=== PATIENT | female | born 1935 | race Caucasian/White ===

== ENCOUNTER 2016-06-15 07:26 | Emergency (ER) | payer MEDICARE ==
--- NOTE | 2016-06-15 07:24 | ED.REPORT ---
HPI-Trauma Minor / Fall Date of Service Jun 15, 2016 ED Provider: Teagan Champion MD 80 year old female with a history of vertigo, and right hip fracture presents to the ER via EMS complaining of left buttock pain status post mechanical ground level fall two days ago. Since the fall she has been unable to ambulate, and she reports limited range of motion of her left hip, radiation of pain down her left leg, and exacerbation of baseline urinary incontinence since the fall. Patient denies head/neck trauma, LOC, numbness/tingling of the left lower extremity, and any other injuries secondary to the fall. She is typically ambulatory with use of a walker. Nursing Notes Stated Complaint: GLF,BUTTOCK AND GROIN PAIN Nursing Notes Reviewed: Yes Allergies: Coded Allergies: No Known Allergies (Verified , 06/05/03) Uncoded Allergies: No Known Allergies (Allergy, Unknown, 08/16/04) Scheduled Aspirin (Aspirin) 325 Mg Tablet 325 MG PO BID Please start on May 01 2015 Cholecalciferol (Vitamin D3) (Vitamin D) 1,000 Unit Tablet 1,000 UNIT PO DAILY Enoxaparin Sodium (Enoxaparin Sodium) 40 Mg/0.4 Ml Syringe 40 MG SUBQ DAILY Omeprazole (Prilosec) 20 Mg Capcr 10 MG PO DAILY Scheduled PRN ([Hydrocodone/Acetaminophen]) 1 TABLET TABLET 1-2 TABLET PO Q4H PRN PRN For Moderate Pain Docusate Sodium (Colace) 100 Mg Capsule 100 MG PO BID PRN PRN For Constipation Polyethylene Glycol 3350 (Miralax) 17 Gm Powd.pack 17 GM PO DAILY PRN PRN For Constipation Sennosides (Senna) 8.6 Mg Tablet 17.2 MG PO BID PRN PRN For Constipation Sertraline HCl (Zoloft) 100 Mg Tablet 100 MG PO DAILY PRN PRN For Anxiety General Time Seen by MD: 07:23 Chief Complaint Fall, Extremity pain (Left Buttock) Hx Obtained From: Patient Arrived By: Ambulance Onset Occurred: 2 days ago Symptom Duration: Since onset Caused by: Accidental, Fall on ground Context: Occurred at: Home injury Location: Hip left (Buttock) Quality: Painful Severity: Current: Moderate Severity: Maximum: Moderate Associated with: Denies: Loss of consciousness, Numb extremities Similar Sx Previous: No Past Medical History Past Medical History Urinary stress incontinence Right hp fracture Past Surgical History Colonoscopy Family History noncontributory Smoking History Former Smoker Social History Drug Use: Denies drug use Other Social History: Good social support, Local resident Ambulatory Status Walker Review of Systems Musculoskeletal: Reports: Extremity pain (Left Leg), Joint pain (Left Hip/ Buttock), Denies: Back pain, Lumbar pain, Neck pain, Thoracic pain Neurologic: Reports: Bladder dysfunction, Denies: Focal weakness, Headache, Numbness, Syncope Complete sys rev & neg: except as marked. Physical Exam Initial Vital Signs Vital Signs (First) Date Time Temp Pulse Resp B/P Pulse Ox O2 Delivery O2 Flow Rate FiO2 06/15/16 07:36 36.7 85 16 162/86 95 Room Air Initial VS: Reviewed Head / Eyes: Atraumatic, Normocephalic Respiratory: Breath sounds normal, Clear to auscultation, No respiratory distress Cardiovascular: Regular rate & rhythm, Heart sounds normal, Intact distal pulses Abdomen / GI: Soft, Non-tender, No guarding, No rebound, No distention Skin: Warm, Dry, No cyanosis Neurologic: Alert, Oriented, Nonfocal General/Constitutional: Awake, Alert Neck: Atraumatic, Supple, Full range of motion, No swelling, Non-tender, No midline vertebral tend RIGHT HIP: Tender in the center of her right buttock. Pain with any hip movement. Difficulty lifting hip from the bed. Interpretation & Diagnostics Lab Results Interpretation Test 06/15/16 07:20 06/15/16 08:58 Hold Purple Top Tube Received (Received) Hold Blue Top Tube Received (Received) Hold [place] Top Tube Received (Received) Urine Color Straw (YELLOW) Urine Appearance Clear (CLEAR,HAZY) Urine pH 7.5 (5.0-8.0) Urine Specific [place] 1.010 (1.003-1.035) Urine Protein Negativemg/dL (NEG,TRACE) Urine Glucose (UA) Negativemg/dL (NEGATIVE) Urine Ketones Negativemg/dL (NEGATIVE) Urine Occult Blood Small (NEGATIVE) Urine Nitrite Negative (NEGATIVE) Urine Bilirubin Negative (NEGATIVE) Urine Urobilinogen Normalmg/dL (NORMAL) Urine Leukocyte Esterase Negative (NEGATIVE) Urine RBC 3-10/hpf (0-2) Urine WBC 0-5/hpf (0-5) Urine Epithelial Cells Occasional/hpf (NONE-MOD) Urine Crystals None seen (NONE SEEN) Urine Bacteria None/hpf (NONE-FEW) Urine Hyaline Casts None/lpf (NONE) Urine Granular Casts None seen (NONE SEEN) Urine Waxy Casts None seen (NONE SEEN) Urine Red Blood Cell Casts None seen (NONE SEEN) Urine White Blood Cell Casts None seen (NONE SEEN) Urine Mucus None seen (None Seen) Urine Trichomonas None seen (NONE SEEN) Urine Yeast None (NONE SEEN) Urinalysis Comment None Urine Culture Reflexed Not indicated X-Ray Interpretation Xray Interpretation: IMPRESSION: Multilevel degenerative change. Dictated by: Joce ALARCON Interpreted: Mitchel Lopez MD on 06/15/2016 at 9:14 Transcribed by: VLAD on 06/15/2016 at 9:15 Study Performed: LUMBAR SPINE Interpretation / Wet Read by: Interpret - Radiologist Xray Interpretation: IMPRESSION: Intact left hip arthroplasty and mild right hip joint degeneration redemonstrated. Dictated by: Joce ALARCON Interpreted: Mitchel Lopez MD on 06/15/2016 at 9:16 Transcribed by: VLAD on 06/15/2016 at 9:18 X-Ray Ordered: Pelvis, Hip left Interpretation / Wet Read by: Interpret - Radiologist CT Abd / Pelvis Interpretation IMPRESSION: 1. Minimally displaced anterior right inferior pubic ramus fracture. 2. Nondisplaced left sacral fracture. Dictated by: Mary Gonzalez M.D. on 06/15/2016 at 9:58 Approved by: Mary Gonzalez M.D. on 06/15/2016 at 10:08 Study type: Abdom CT oral contrast Interpretation / Wet Read by: Interpret - Radiologist Re-Eval/Medical Decision Source of Hx: Old records Re-Evaluation/Progress #1: Time of Eval: 09:38 Re-Evaluation/Progress Note: Patient's pain has improved significantly with pain medications. Discussed x-ray results and need for CT. Re-Evaluation/Progress #2: Time of Eval: 10:29 Re-Evaluation/Progress Note: Discussed CT results and plan to discharge. Patient is amenable to the plan. Return precautions given. All other questions addressed. Counseled Regarding: Diagnosis, Lab results, Need for follow-up, When/why to return to ED Discharge & Departure Impression: Primary Impression: Pelvis fracture Additional Impression: Sacral fracture, closed Disposition: Home Discharge Condition All VS Reviewed: Yes Condition: Stable Additional Instructions: You did break your pelvis. Fortunately, there is no need for surgery. You will be the most sore about 2 days after the injury (today). You had good pain relief with one Aleve. Please continue this am and pm as need.. Add Tylenol in the middle of the day if needed for additional pain. Use a walker for ambulation. You do need to make sure you are up and moving. Between you, your and your daughter, you all believe you will do well at home and will be able to get up and around enough to get the bathroom for the next days. Return to the ER if you develop worsening pain or other concerning symptoms. Thank you for coming in today. I'm sorry you are broken. I hope you heal up quickly. Please be very careful with preventing falls. Referrals: Nedra Barksdale MD (PCP) Scribe Attestation Portions of this note were transcribed by Gary Sims. I, Dr. Champion, personally performed the history, physical exam and medical decision-making; I reviewed and confirmed the accuracy of the information in the transcribed note. Signed by: Eulalia De Los Santos, 06/15/2016 at 10:54 copies to: Nedra Barksdale MD, Shawna L MD Jun 15, 2016 07:24 GARY SIMS Jun 15, 2016 07:33
[~2016-06-15 07:26] MED LIST: ASPI325T32 PO; CHOL100043 PO; DOCU-41 PO; ENOX40DI8 SUBQ; Hydrocodone/Acetaminophen PO; OMPR20CCR PO; POLY17PO6 PO; SENN-133 PO; SERT100T PO
[2016-06-15 07:36] VITALS: BP 162/86; PULSE 85; RESP 16; O2SAT 95
--- NOTE | 2016-06-15 09:16 | DRSVH ---
PROCEDURE: X-RAY LUMBAR SPINE, 2 OR 3 VIEW INDICATIONS: fall TECHNIQUE: 3 views of the lumbar spine were acquired. COMPARISON: None. FINDINGS: Bones: 5 [id number] vertebrae are present. Mild rightward curvature. Grade 1 retrolisthesis L2 -L3 and L5-S1. Moderate multilevel disc degeneration and lower lumbar spine facet joint arthropathy with also mild neural foraminal narrowing. No vertebral body compression fractures. No suspicious b rylee lesions. Left hip arthroplasty incompletely visualized. Cholecystectomy clips. Soft tissues: Overlying bowel gas pattern is normal. No suspicious soft tissue calcifications. IMPRESSION: Multilevel degenerative change. Dictated by: Joce Sapp [facility] Interpreted: Mitchel Lopez MD on 06/15/2016 at 9:14 Transcribed by: VLAD on 06/15/2016 at 9:15 Approved by: Mitchel Lopez M.D. on 06/15/2016 at 10:52
--- NOTE | 2016-06-15 09:18 | DRSVH ---
PROCEDURE: X-RAY PELVIS W/LAT HIP (LT) ([id number]) INDICATIONS: fall TECHNIQUE: AP pelvis and lateral view of the left hip acquired. COMPARISON: [facility], , XR PELVIS W LATERAL HIP LT, 05/28/2015, 8:36. FINDINGS: Bones: Left hip arthroplasty is intact. No fracture or dislocation. Soft tissues: The visualized bowel gas pattern phleboliths are scattered throughout the pelvis. is n ormal. No suspicious soft tissue calcifications. Mild joint narrowing with periarticular osteophyte formation of the right hip joint. IMPRESSION: Intact left hip arthroplasty and mild right hip joint degeneration redemonstrated. Dictated by: Joce LEON Interpreted: Mitchel Lopez MD on 06/15/2016 at 9:16 Transcribed by: VLAD on 06/15/2016 at 9:18 Approved by: Mitchel Lopez M.D. on 06/15/2016 at 10:52
[2016-06-15 09:20] LABS: APPEARANCE,URINE CLEAR (CLEAR,HAZY); COLOR,URINE STRAW (YELLOW); OCCULT BLOOD,URINE SMALL (NEGATIVE); PH,URINE 7.5 (5.0-8.0); UROBILINOGEN,URINE NORMAL (NORMAL)
[2016-06-15 09:28] VITALS: BP 130/69; PULSE 82; RESP 12; O2SAT 97
--- NOTE | 2016-06-15 10:10 | DRSVH ---
PROCEDURE: CT PELVIS WITHOUT CONTRAST ([id number]) INDICATIONS: RIGHT hip pain. fall TECHNIQUE: After the administration of oral contrast, 5 mm thick sections acquired from the iliac crests to the symphysis. 5 mm coronal and sagittal reformats were then performed. For radiation dose reduction, t he following was used: automated exposure control, adjustment of mA and/or kV according to patient s ize. COMPARISON: [facility], CR, XR PELVIS W LATERAL HIP LT, 06/15/2016, 8:03. FINDINGS: Image quality: Excellent. Peritoneum and bowel: Bowel loops demonstrate normal wall thickness and caliber. No free fluid or a ir. Genitourinary: Bladder wall thickness is normal. Nodes and vessels: No iliac, pelvic, or inguinal adenopathy by size criteria. Iliac vessels demonst rate normal size. Bones: No suspicious bony lesions. There is a minimally displaced anterior right inferior pubic tish us fracture. Additionally, there is a nondisplaced left sacral fracture. Left hip arthroplasty is p resent. Miscellaneous: No inguinal hernias. IMPRESSION: 1. Minimally displaced anterior right inferior pubic ramus fracture. 2. Nondisplaced left sacral fracture. Dictated by: Mary Gonzalez M.D. on 06/15/2016 at 9:58 Approved by: Mary Gonzalez M.D. on 06/15/2016 at 10:08
[2016-06-15 10:58] VITALS: BP 135/52; PULSE 98; RESP 14; O2SAT 97
[2016-06-15 11:19] VITALS: BP 135/52; PULSE 98; RESP 14; O2SAT 97
== END 2016-06-15 11:20 | disposition home or self-care (01) ==
LOC: SED 07:26
DX: S32.501A Unspecified fracture of right pubis, initial encounter for closed fracture (principal); S32.10XA Unspecified fracture of sacrum, initial encounter for closed fracture; W18.30XA Fall on same level, unspecified, initial encounter; Y92.009 Unspecified place in unspecified non-institutional (private) residence as the place of occurrence of the external cause; Y93.89 Activity, other specified; Y99.8 Other external cause status; Z86.69 Personal history of other diseases of the nervous system and sense organs; Z87.828 Personal history of other (healed) physical injury and trauma; Z96.642 Presence of left artificial hip joint; Z87.891 Personal history of nicotine dependence; Z79.82 Long term (current) use of aspirin

== ENCOUNTER 2016-06-26 09:51 | Inpatient (IN) | payer MEDICARE ==
[~2016-06-26] VITALS: Ht 154.9 cm; Wt 48.9 kg
[2016-06-26 10:04] VITALS: BP 110/43; PULSE 67; RESP 15; O2SAT 95
--- NOTE | 2016-06-26 10:11 | ED.REPORT ---
HPI-General Illness Date of Service June 26, 2016 ED Provider: Teagan Champion MD Dania Masterson is an 80 year old female with a history of vertigo, right hip fracture presents and pelvis fracture secondary to ground level fall on 06/15/13 presents presents [facility] ER via EMS complaining of worsening left buttock pain. Since the fall she has been unable to ambulate, and she reports limited range of motion of her left hip, radiation of pain down her left leg. She has been on Hydrocodone for pain at home. She states it provides relief as long as she is in bed, but if she tries to ambulate the pain is severe so she prefers to stay in bed most of the time. She is typically ambulatory with use of a walker. Patient also states she has been constipated and had not have a bowel movement for 5 days. She has not been taking any stool softeners along with pain medication. Patient denies chills, fever, nausea, vomiting, dysuria. Nursing Notes Stated Complaint: PELVIC PAIN Chief Complaint: General Complaint Allergies: Coded Allergies: No Known Allergies (Verified , 06/05/03) Uncoded Allergies: No Known Allergies (Allergy, Unknown, 08/16/04) Scheduled Aspirin (Aspirin) 81 Mg Tablet 81 MG PO DAILY Levothyroxine (Levothyroxine) 50 Mcg Tablet 50 MCG PO DAILY Omeprazole Magnesium (Prilosec Otc) 20 Mg Tablet.dr 5 MG PO DAILY Sertraline HCl (Sertraline) 100 Mg Tablet 100 MG PO DAILY Scheduled PRN Alprazolam (Alprazolam) 0.5 Mg Tablet 0.5 MG PO BID PRN PRN For Anxiety or Agitation General Time Seen by MD: 10:10 Chief Complaint Weakness (and pain) Hx Obtained From: Patient, Spouse Arrived By: Ambulance Onset Occurred: More than a week ago... Symptom Duration: Since onset Past Medical History Past Medical History Urinary stress incontinence Right hp fracture Left hip arthroplasty Past Surgical History Colonoscopy Family History noncontributory Smoking History Former Smoker Social History Drug Use: Denies drug use Other Social History: Good social support, , Local resident Ambulatory Status Walker Review of Systems A comprehensive review of systems has been conducted with the patient and was found to be negative except what is mentioned in the history of present illness. Physical Exam Vital Signs Vital Signs Date Time Temp Pulse Resp B/P Pulse Ox O2 Delivery O2 Flow Rate FiO2 5/5/17 14:26 36.9 72 17 135/61 97 Room Air 06/26/16 10:04 36.7 67 15 110/43 95 Room Air General/Constitutional: Awake, Alert, No acute distress Appearance / Presentation: Positive: Frail Head / Eyes: Atraumatic, Normocephalic, PERRL, EOMI, No nystagmus ENT: Mucous membranes moist Neck: Supple, Full range of motion Respiratory / Chest: Breath sounds NL, No respiratory distress, No rales, No rhonchi, No wheezing Cardiovascular: Heart rate NL, Regular rhythm, No murmurs Abdomen: Soft, BS normoactive, No distention, No palpable mass Tenderness/Guarding/Rebound: Positive: Tender RLQ... (Mild) Lower Extremity / Pelvis / MS: No swelling, No erythema, Neurologic intact, No edema Pelvis: Positive: Tender posterior (Left side) Ankle / Foot: Inspection NL, Full range of motion, Neurologic intact Skin: No rash Interpretation & Diagnostics Lab Results Interpretation Result Diagram: 06/27/1644406/27/16444 Re-Eval/Medical Decision Med Decision/Clinical Course 80 year old female with left sacral pain secondary to pelvis fracture and constipation. We have administered Hydromorphone IV for pain relief as well as Percocet PO. We had a physical evaluation ordered, per their recommendation, patient needs pain control and supervised physical therapy to start moving around. Digital stool evacuation has been done followed by enema. However, patient has not been able to produce bowel movements. Magnesium citrate, 300 ml has been ordered. Patient needs admission for observation for better pain control, physical therapy and constipation treatment. Source of Hx: Old records Consultation : Referral / Consult Name: Ravinder Salamanca MD Consulted With: Hospitalist Call Returned at: 14:55 Sheet Metal Operator: Will see patient, Agrees with eval, Agrees with plan, Accepts admit Counseled Regarding: Diagnosis, Lab results, Need for admission Discharge & Departure Primary Impression: Uncontrolled pain Additional Impressions: Pelvic fracture Constipation due to opioid therapy Disposition: ADMITTED TO HOSPITAL Discharge Condition Condition: Stable Referrals: Anna Mckeon (PCP) EDSupervising Provider for APC: Teagan Champion MD Attending Statement Pt seen and examined with Dr Alatorre Pelvic fx after GLF 06/15. At time, discussion regarding dispo, pt and family felt she would do fine at home and pain was tolerable with aleve and tylenol in the dept. Once home pain too severe to get out of bed. narcotic added, but still unable to ambulate. Now, no BM for 1 wk, increasing abd pain and still unable to ambulate. Attempts to disimpact and aid with BM in the ED are unsuccessfully. PT eval confirms inability to ambulate and need for better pain control and assistance with rehab/ambulation. Agree with plans for admit as above. copies to: Anna Mckeon Shawna L MD June 26, 2016 10:11 Caitlin Alatorre DO June 26, 2016 11:19 Mariela Hylton June 26, 2016 14:55
[2016-06-26] MEDS ORDERED: HYDROmorphone 1 mg/mL Inj IM ONE (11:25)
[2016-06-26] MEDS ORDERED: Sodium Biphos-Phos 133 mL Enema RECTAL ONE (11:25)
[2016-06-26] MEDS ORDERED: Ondansetron 2 mg/mL 2 mL Inj ONE (11:26)
[2016-06-26] MEDS ORDERED: HYDROmorphone 0.5 mg/0.5 mL iSecure Syringe ONE (12:16)
[2016-06-26] MEDS ORDERED: HYDROmorphone 0.5 mg/0.5 mL iSecure Syringe IVPUSH PRN (12:20)
[2016-06-26] MEDS ORDERED: Ondansetron 2 mg/mL 2 mL Inj IVPUSH ONE (12:20)
--- NOTE | 2016-06-26 13:41 | NUR ---
Evaluation completed. Please go to "Notes" then click on "Assessments and Notes" (bottom left corner of screen). Then select appropriate discipline tab on top of screen.
[2016-06-26 14:26] VITALS: BP 135/61; PULSE 72; RESP 17; O2SAT 97
[2016-06-26] MEDS ORDERED: oxyCODONE-Acetamin 5-325 mg Tablet PO ONE (14:30)
[2016-06-26] MEDS ORDERED: Ondansetron 2 mg/mL 2 mL Inj IVPUSH PRN ×2 (14:55→17:05)
[2016-06-26] MEDS ORDERED: Alum-Mag Hydrox-Simeth 30 mL Suspension PO PRN ×2 (14:55→17:05)
[2016-06-26] MEDS ORDERED: oxyCODONE-Acetamin 5-325 mg Tablet PO PRN (14:55)
[2016-06-26] MEDS ORDERED: ASPI-973 PO (15:36)
[2016-06-26] MEDS ORDERED: HYDR-4003 PO (15:38)
[2016-06-26] MEDS ORDERED: SERT100T9 PO (15:38)
[2016-06-26] MEDS ORDERED: OMEP20TA24 PO (15:38)
[2016-06-26] MEDS ORDERED: LEVO50TA6 PO (15:38)
[2016-06-26] MEDS ORDERED: ALPR0.5T8 PO (15:38)
--- NOTE | 2016-06-26 16:30 | NUR ---
Admit Pt was admitted at 1630 to room 1004. Pt was transferred to bed with slide board. Pt rates pain in left hip and pelvis a 10/10, IV pain medication given. Pt nauseated and had an episode of emesis. 4mg Zofran given. Emesis is brown in color. Pt is A&Ox3. ANTHONY. at bedside. Pt states that she is passing gas but has not had a BM in 5 days. Denies chest pain or SOB. RA. Care continues.
[2016-06-26 16:42] VITALS: BP 169/86; PULSE 76; RESP 18; O2SAT 96
--- NOTE | 2016-06-26 17:56 | DRSVH ---
PROCEDURE: X-RAY PELVIS WITH BILATERAL HIPS, 3 VIEWS INDICATIONS: pain recent pelvic fracture TECHNIQUE: AP pelvis with lateral view(s) of the left and right hip(s). COMPARISON: [facility], CR, XR PELVIS W LATERAL HIP LT, 06/15/2016, 8:03. [facility], CT, CT PELVIS WO CON, 06/15/2016, 9:53. FINDINGS: Bones: Minimally displaced left sacral fracture. Mildly displaced right pubic symphysis fracture unch anged. Left hip arthroplasty. Soft tissues: The visualized bowel gas pattern is normal. No suspicious soft tissue calcifications. IMPRESSION: No change in right pubic symphysis and left sacral fractures. Dictated by: Jose Rodriguez M.D. on 06/26/2016 at 17:53 Approved by: Jose Rodriguez M.D. on 06/26/2016 at 17:54
[2016-06-26] MEDS ORDERED: KCl 40 mEq/D5W 500 mL 40 MEQ in IV Premix 1 EACH IV ONE (18:05)
[2016-06-26] MEDS ORDERED: Promethazine 50 mg/mL Inj IM PRN (18:05)
--- NOTE | 2016-06-26 18:18 | PCM.HPMED ---
Subjective Date of Service June 26, 2016 Primary Provider: Admitting Physician: Ravinder Salamanca MD Primary Care Physician: Anna Mckeon Attending Physician: Ravinder Salamanca MD Chief Complaint: lower back b/l hip pain. inability to walk. nausea History of Present Illness: 80yo lady with reported medical hx of hypothyroidism. recently in the er and sent home after falling at home. had a pelvic and sacral fx. has not been ambulating at home. she believes the pain is getting worse and it is very hard for her to get up and she cannot walk even with a walker. dec po intake over the past few days. last bowel movement was about 6-7 days ago but does not feel bloated. no abd pain. at home she takes oral opiates for pain control however not helping. Review of Systems: Positive Review of Symptoms mentioned and elaborated on in HPI. Head: Denies H/A, trauma, loss of consciousness. Eyes: Denies visual loss, diplopia. Ears: Denies: deafness, tinnitis, discharge, pain Nose: Denies discharge, obstruction, epistaxis Mouth: Denies sores, gingival bleeding, jaw pain Neck: Denies stiffness, issues swallowing. Respiratory: Denies dyspnea, cough, sputum. Cardiovascular:Denies CP, palpitations, orthopnea, peripheral edema Gastrointestinal: see hpi Denies melena, abd pain Genitourinary: Denies dysuria, discharge. Skin: Denies: lesions, rashes, pruritus. Musculoskeletal: see hpi Neuro: Denies numbness, tingling, weakness. Psyc: Currently denies feelings of anxiety, depression. Allergies Coded Allergies: No Known Allergies (Verified , 06/05/03) Uncoded Allergies: No Known Allergies (Allergy, Unknown, 08/16/04) Home Medications see med rec PMH hypothyrodism Surgical History hip Family History denies Social History Hx Alcohol Use: No Hx Substance Use: No Smoking Status: Former Smoker Living Arrangement: with Family Exam Vital Signs Vital Sign - Last Date Time Temp Pulse Resp B/P Pulse Ox O2 Delivery O2 Flow Rate FiO2 06/26/16 16:42 36.7 76 18 169/86 96 Room Air Exam General: No acute distress. Awake, alert. Head: Normocephalic, atraumatic. Eyes: White sclera. Conjunctiva non-injected. Mouth & Throat: No Bleeding. No erythema, lesions, exudates visualized. dry mucus membranes Neck: No tender adenopathy. Trachea midline. Respiratory: Clear to auscultation bilaterally. Symmetric chest expansion. Regular work of breathing without use of accessory muscles. Cardiovascular: S1, S2. Regular rate and rhythm without murmurs, rubs or gallops. Pulses 2+ equal bilaterally. Abdomen: Normal bowel sounds x4 quadrants. Soft, non-tender, non-distended. Extremities: Intact. no joint effusions. no lower extremity tenderness, swelling , erythema or increased warmth. lower back tenderness. L hip tenderness. limited ROM of both LE due to pain Skin: Intact, no lesions, no rash. dry skin Neurologic: Awake, alert, oriented x3. No focal deficits. Psychiatric: Appropriate mood and affect. Cooperative. Assessment & Plan -- pelvic, sacral fx -- uncontrolled pain requiring iv narcotics now. repeat imaging to ensure no worsening / change -- nausea antiemetics -- dehydration po diet as tolerated. ivf. -- hypothyroidism cont home medications f/e/n: po diet. ivf. dispo: admit to inpt expected LOS >2 midnights. case managment, sr. social media & mobile manager consult. may need to go to snf eventually. Pain Evaluation: Pain not Controlled GI Prophylaxis: Not indicated VTE Prophylaxis: Sub-Q Enoxaparin VTE Mechanical Devices: Intermittant Pneumatic CD Resuscitation Status: CPR: Attempt Resuscitation Ravinder Salamanca MD June 26, 2016 18:18
[2016-06-26] MEDS: 0.9% Sodium Chloride 1,000 ML IV SCH (18:20)
[2016-06-26 19:45] VITALS: BP 135/69; PULSE 78; RESP 17; O2SAT 95
[2016-06-26 23:55] VITALS: BP 129/72; PULSE 74; RESP 17; O2SAT 96
--- NOTE | 2016-06-27 01:18 | NUR ---
pelvic pain increased with movement, rated 9. IV Morphine effective overnight; rated 2. Repositioned for comfort.
[2016-06-27] MEDS: ALPRAZolam 0.5 mg Tablet PO PRN ×2 (01:51→14:07)
[2016-06-27] MEDS: 0.9% Sodium Chloride 1,000 ML IV SCH (03:24)
[2016-06-27 05:20] LABS: Mean Corpuscular Hemoglobin 22.9 pg (27.0-35.0); Mean Corpuscular Volume 76.8 fL (81-100)
[2016-06-27 05:45] LABS: Magnesium 2.9 mg/dL (1.6-2.6)
[2016-06-27 05:51] VITALS: BP 127/66; PULSE 70; RESP 17; O2SAT 95
[2016-06-27] MEDS: Pantoprazole 20 mg ER24 Tablet PO SCH (07:46)
[2016-06-27 08:53] LABS: APPEARANCE,URINE CLEAR (CLEAR,HAZY); COLOR,URINE STRAW (YELLOW); OCCULT BLOOD,URINE TRACE (NEGATIVE); UROBILINOGEN,URINE NORMAL (NORMAL)
[2016-06-27 09:06] VITALS: BP 115/55; PULSE 65; RESP 16; O2SAT 98
--- NOTE | 2016-06-27 09:21 | PCM.PNMED ---
Subjective Date of Service June 27, 2016 Subjective doing better today. pain more controlled. will try to work with pt today. denies: headache, lightheadedness, chest pain, worsening shortness of breath, cough, abdominal pain, nausea, vomiting, diarrhea, dysuria, sweats, chills, shakes Exam Vital Signs Vital Sign - Last Date Time Temp Pulse Resp B/P Pulse Ox O2 Delivery O2 Flow Rate FiO2 06/27/16 09:06 36.6 65 16 115/55 98 Room Air Intake and Output 06/26/16 06/26/16 06/27/16 Cumulative From/Thru 15:00 23:00 07:00 06/26/16 10:04 - 06/27/16 05:51 Intake Total 400 ml 1570 ml 1970 ml Output Total 200 ml 700 ml 900 ml Balance 200 ml 870 ml 1070 ml Intake Oral 400 ml 800 ml 1200 ml IV Total 770 ml 770 ml Output Urine Total 200 ml 700 ml 900 ml # Bowel Movements 0 0 Exam Physical Exam: Gen: no acute distress HEENT: moist mucus membranes Respiratory: CTAB, unlabored respirations Cardiovascular: RRR, no m/r/g Abdomen: soft, non-tender, non-distended. + bowel sounds x 4 quadrants Extremities: Intact. no joint effusions. no lower extremity tenderness, swelling , erythema or increased warmth. lower back tenderness. L hip tenderness. limited ROM of both LE due to pain. Improved from yest exam. Psyc: appropriate, cooperative IVs and Medications Medications Reviewed: Medications were reviewed in detail Lab and Diagnostics Result Diagram: 06/27/1644406/27/16444 X-Rays, CTs and MRIs Date of Service: 06/26/16 3984 PROCEDURE: X-RAY PELVIS WITH BILATERAL HIPS, 3 VIEWS INDICATIONS: pain recent pelvic fracture TECHNIQUE: AP pelvis with lateral view(s) of the left and right hip(s). COMPARISON: [facility], CR, XR PELVIS W LATERAL HIP LT, 06/15/2016, 8:03. [facility], CT, CT PELVIS WO CON, 06/15/2016, 9:53. FINDINGS: Bones: Minimally displaced left sacral fracture. Mildly displaced right pubic symphysis fracture unchanged. Left hip arthroplasty. Soft tissues: The visualized bowel gas pattern is normal. No suspicious soft tissue calcifications. IMPRESSION: No change in right pubic symphysis and left sacral fractures. Dictated by: Jose Rodriguez M.D. on 06/26/2016 at 17:53 Approved by: Jose Rodriguez M.D. on 06/26/2016 at 17:54 Assessment & Plan -- pelvic, sacral fx -- uncontrolled pain requiring iv narcotics now. repeat imaging no new disease pain control improving. work with pt today. -- nausea antiemetics -- dehydration po diet as tolerated. improved. stop ivf. with oral diet. -- hypothyroidism cont home medications f/e/n: po diet. dispo:case managment, social services manager consult. potentially snf tomorrow. GI Prophylaxis: Not indicated VTE Prophylaxis: Sub-Q Enoxaparin VTE Mechanical Devices: Intermittant Pneumatic CD Resuscitation Status: CPR: Attempt Resuscitation Ravinder Salamanca MD June 27, 2016 09:21
[2016-06-27] MEDS: Polyethylene Glycol (PEG) 17 Gm Powder PO PRN (10:59)
--- NOTE | 2016-06-27 11:43 | NUR ---
Home medications Was going to administer pt her scheduled a.m. aspirin and sertraline and pt's spouse stated that she had already taken these medications. He had given her these medications from her home supply. Asked spouse and pt to please not do this again. Verified that none of pt's home medications were in the room. Pt and spouse agreed. Care continues.
[2016-06-27 13:11] VITALS: BP 134/65; PULSE 77; RESP 18; O2SAT 96
--- NOTE | 2016-06-27 13:55 | NUR ---
[facility] signed
--- NOTE | 2016-06-27 15:05 | NUR ---
Social Work: Initial Assessment D: EMR and PT Evaluation Reviewed. Pt is a 80 y/o female admitted for uncontrolled pain, pelvic fracture, constipation per H&P. SW met with pt at [facility] to conduct initial assessment. Pt was alert and oriented x3. Pt confirmed that insurance is [employer] and PCP is ZACHARIAH Cuellar. Pt has no LTC or VA insurance. Pt has no HH history. Pt has history at [facility] and had positive feedback. Pt does not drive. Pt is independent at baseline with use of a FWW to ambulate. Pt lives at home with her and Daughter in a single-story, level entrance home. SW confirmed that pt has completed DPOA/advanced directive ppw and encouraged pt to provide a copy to the hospital. SW reviewed PT Evaluation and PT is recommending SNF. SW discussed SNF options and provided choice list. Pt would like to go to [facility]. SW will fax face sheet and PASSR to [facility] and update note. A: Pt who would benefit from SNF after discharge. P: Pt will likely go to [facility] at time of discharge. SW to fax PASSR and facesheet to [facility] and provide access. SW will continue to follow. NADINE Corona Addendum: 06/27/16 at 1513 by IBRAHIMA SHARMA SS Amended: Links added.
--- NOTE | 2016-06-27 15:38 | NUR ---
Gave access and faxed face sheet/PASSR to [facility]. NADINE Corona
[2016-06-27 17:10] VITALS: BP 118/58; PULSE 70; RESP 18; O2SAT 95
--- NOTE | 2016-06-27 18:45 | NUR ---
Pain / confusion Pt feeling more comfortable this p.m. and reports pain is 4/10; not requesting additional pain medication. Assisting pt with pain management by periodically repositioning her in the bed and placing pillows under her back and hips. Pt is intermittently confused about time and place. This afternoon she could not tell me what year it was and did not recall that her spouse had been here this a.m. Will continue to monitor pt for changes in mentation and behavior.
[2016-06-27 20:35] VITALS: BP 123/53; PULSE 76; RESP 16; O2SAT 97
[2016-06-28] MEDS: Pantoprazole 20 mg ER24 Tablet PO SCH (06:21)
[2016-06-28 06:25] VITALS: BP 126/68; PULSE 71; RESP 16; O2SAT 98
[2016-06-28] MEDS: Polyethylene Glycol (PEG) 17 Gm Powder PO PRN (08:33)
--- NOTE | 2016-06-28 09:06 | NUR ---
Accepted at [facility] with Dr. Azevedo pending insurance authorization with [place].
--- NOTE | 2016-06-28 10:29 | NUR ---
Social Work: Readiness for Discharge D: Pt is day 2 of hospitalization and will [place] via [place] [facility] [place]. LISA spoke with Arianna from [facility] and confirmed bed is available for pt to discharge today. Pt will transport [place] [facility] [place]. LISA told pt that we can't guarantee insurance will cover BLS. Both pt and were agreeable and willing to transport to [facility] via BLS today. A: Pt who would benefit from SNF. P: Pt to [place] [facility] [place] insurance authorization. LISA will continue to follow. NADINE Corona.
--- NOTE | 2016-06-28 10:41 | PCM.DIMED ---
Discharge Instructions Date of Service June 28, 2016 Dates of Hospitalization June 26, 2016 at 15:47 Discharge Diagnosis Discharge Diagnosis -- pelvic, sacral fx -- uncontrolled pain improved -- dehydration resolved -- hypothyroidism Diet No restrictions Activity Other (per physical therapy recommendations.) Call your provider Fever or Chills, Shortness of breath, Bleeding, Chest pain, Vomitting, Excessive diarrhea, Weakness (unilateral), Other (severe pain.) Patient Instructions Follow-up plan follow up with primary care physician within 3-5 days of discharge. Ravinder Salamanca MD June 28, 2016 10:41
[2016-06-28] MEDS ORDERED: OXYC1TAB24 PO (10:46)
[2016-06-28] MEDS ORDERED: LOV30 SUBQ (10:46)
[2016-06-28] MEDS ORDERED: POLY17PO6 PO (10:48)
[2016-06-28] MEDS ORDERED: DOCU-41 PO (10:48)
--- NOTE | 2016-06-28 10:53 | PCM.DC.MED ---
Discharge Summary Date of Service June 28, 2016 Dates of Hospitalization Date of Hospital Admission June 26, 2016 at 15:47 Date of Discharge: June 28, 2016 Providers: Admitting Physician: Ravinder Salamanca MD Primary Care Physician: nAna Mckeon Attending Physician: Ravinder Salamanca MD Diagnosis at Time of Discharge Diagnosis at Time of Discharge -- pelvic, sacral fx -- uncontrolled pain improved -- dehydration resolved -- hypothyroidism Consultations none Procedures XRay, CTs & MRIs Date of Service: 06/26/16 1709 PROCEDURE: X-RAY PELVIS WITH BILATERAL HIPS, 3 VIEWS INDICATIONS: pain recent pelvic fracture TECHNIQUE: AP pelvis with lateral view(s) of the left and right hip(s). COMPARISON: [facility], CR, XR PELVIS W LATERAL HIP LT, 06/15/2016, 8:03. [facility], CT, CT PELVIS WO CON, 06/15/2016, 9:53. FINDINGS: Bones: Minimally displaced left sacral fracture. Mildly displaced right pubic symphysis fracture unchanged. Left hip arthroplasty. Soft tissues: The visualized bowel gas pattern is normal. No suspicious soft tissue calcifications. IMPRESSION: No change in right pubic symphysis and left sacral fractures. Dictated by: Jose Rodriguez M.D. on 06/26/2016 at 17:53 Approved by: Jose Rodriguez M.D. on 06/26/2016 at 17:54 Brief History 80yo lady with reported medical hx of hypothyroidism. recently in the er and sent home after falling at home. had a pelvic and sacral fx. has not been ambulating at home. she believes the pain is getting worse and it is very hard for her to get up and she cannot walk even with a walker. dec po intake over the past few days. last bowel movement was about 6-7 days ago but does not feel bloated. no abd pain. has not been eating well at home. at home she takes oral opiates for pain control however not helping. Hospital Course improved over the course of her hospital stay. tolerating diet. pain improved. working with physical therapy. she and her are ok to go to snf for ongoing rehab. prior to d/c denies: headache, lightheadedness, chest pain, worsening shortness of breath, cough, abdominal pain, nausea, vomiting, diarrhea, dysuria, sweats, chills, shakes Exam Vital Signs (Last) Date Time Temp Pulse Resp B/P Pulse Ox O2 Delivery O2 Flow Rate FiO2 06/28/16 06:25 37.0 71 16 126/68 98 Room Air Exam Physical Exam: Gen: no acute distress HEENT: moist mucus membranes Respiratory: CTAB, unlabored respirations Cardiovascular: RRR, no m/r/g Abdomen: soft, non-tender, non-distended. + bowel sounds x 4 quadrants Extremities: Intact. no joint effusions. no lower extremity tenderness, swelling , erythema or increased warmth. lower back tenderness. L hip tenderness. limited ROM of both LE due to pain. again continues to improve from yesterday. Psyc: appropriate, cooperative Test 06/27/16 04:45 06/27/16 08:24 White Blood Count 6.6th/mm3 (3.8-10.1) Red Blood Count 4.01mil/mm3 (3.90-5.20) Hemoglobin 9.2g/dL (12.0-15.6) Hematocrit 30.8% (35.0-46.0) Mean Corpuscular Volume 76.8fL (81-100) Mean Corpuscular Hemoglobin 22.9pg (27.0-35.0) Mean Corpuscular Hemoglobin Concent 29.9% (32.0-37.0) Red Cell Distribution Width 17.3% (12.3-15.4) Platelet Count 417bil/L (150-400) Sodium Level 142mEq/L (134-144) Potassium Level 4.1mEq/L (3.5-5.2) Chloride Level 103mEq/L (97-108) Carbon Dioxide Level 28mmol/L (18-29) Blood Urea Nitrogen 15mg/dL (8-27) Creatinine 0.51mg/dL (0.57-1.00) Estimat Glomerular Filtration Rate 166mL/min (>59) Glucose Level 102mg/dL (60-99) Calcium Level 8.8mg/dL (8.5-10.1) Magnesium Level 2.9mg/dL (1.6-2.6) Urine Color Straw (YELLOW) Urine Appearance Clear (CLEAR,HAZY) Urine pH 7.0 (5.0-8.0) Urine Specific [place] 1.005 (1.003-1.035) Urine Protein Negativemg/dL (NEG,TRACE) Urine Glucose (UA) Negativemg/dL (NEGATIVE) Urine Ketones Negativemg/dL (NEGATIVE) Urine Occult Blood Trace (NEGATIVE) Urine Nitrite Negative (NEGATIVE) Urine Bilirubin Negative (NEGATIVE) Urine Urobilinogen Normalmg/dL (NORMAL) Urine Leukocyte Esterase Negative (NEGATIVE) Urine RBC 0-2/hpf (0-2) Urine WBC 0-5/hpf (0-5) Urine Epithelial Cells Few/hpf (NONE-MOD) Urine Crystals None seen (NONE SEEN) Urine Bacteria Few/hpf (NONE-FEW) Urine Hyaline Casts None/lpf (NONE) Urine Granular Casts None seen (NONE SEEN) Urine Waxy Casts None seen (NONE SEEN) Urine Red Blood Cell Casts None seen (NONE SEEN) Urine White Blood Cell Casts None seen (NONE SEEN) Urine Mucus None seen (None Seen) Urine Trichomonas None seen (NONE SEEN) Urine Yeast None (NONE SEEN) Urinalysis Comment None Urine Culture Reflexed Not indicated Discharge Medications Discharge Medications Aspirin (Aspirin) 81 Mg Tablet 81 MG PO DAILY (Reported) Docusate Sodium (Colace) 100 Mg Capsule 100 MG PO BID Prescribed by: Tacos ENRIQUEZ Enoxaparin (Lovenox) 30 Mg/0.3 Ml Syringe 30 MG SUBQ DAILY Prescribed by: Tacos ENRIQUEZ Levothyroxine (Levothyroxine) 50 Mcg Tablet 50 MCG PO DAILY (Reported) Omeprazole Magnesium (Prilosec Otc) 20 Mg Tablet.dr 5 MG PO DAILY (Reported) Polyethylene Glycol 3350 (Miralax) 17 Gm Powd.pack 17 GM PO DAILY Prescribed by: Tacos ENRIQUEZ Sertraline HCl (Sertraline) 100 Mg Tablet 100 MG PO DAILY (Reported) As needed Alprazolam (Alprazolam) 0.5 Mg Tablet 0.5 MG PO BID PRN PRN For Anxiety or Agitation (Reported) oxyCODONE-Acetaminophen 5-325 mg (oxyCODONE-Acetaminophen 5-325 mg) 1 Each Tablet 1-2 TAB PO Q4H PRN PRN For Pain Prescribed by: Tacos ENRIQUEZ Followup Plan Follow-up plan follow up with primary care physician within 3-5 days of discharge. Discharge Diet: No restrictions Discharge Activity: Other (per physical therapy recommendations.) Time spent >35mins Ravinder Salamanca MD June 28, 2016 10:53
[2016-06-28] MEDS: ALPRAZolam 0.5 mg Tablet PO PRN (11:24)
--- NOTE | 2016-06-28 11:27 | NUR ---
Case Management D: Nadia peres [place] has authorized d/c to [facility] today.
[2016-06-28] MEDS ORDERED: oxyCODONE-Acetamin 5-325 mg Tablet PO PRN (11:35)
--- NOTE | 2016-06-28 12:02 | NUR ---
Social Work: Discharge D: Pt is on day 2 of hospitalization. Pt has been accepted and insurance authorized [place] [facility] SW confirmed BLS transport [place] [facility] [place] 1:[place]. Pt is agreeable to plan. SW contacted [facility] [place] arrival via BLS at 13:30 and confirmed bed is available. A: Pt who would benefit from SNF. P: Pt to discharge to [facility] via [place]LS at 13:30. Pt, , and [facility] agreeable to to plan. NADINE Corona
[2016-06-28 13:25] VITALS: BP 124/70; PULSE 71; RESP 18; O2SAT 98
--- NOTE | 2016-06-28 14:07 | NUR ---
Discharge To [facility] via [facility]LS at 13:30. Report phoned to Arianna. IV discontinued intact, all belongings sent with pt.
== END 2016-06-28 13:43 | DRG 552 ==
LOC: EDUNIT# 09:51 → EDBD 09:51 → SED 09:51 → OBSVTOIN 15:47 → OSC 15:47
PROVIDERS: ADMIT Family Medicine; ATTEND Family Medicine
DX: S32.10XA Unspecified fracture of sacrum, initial encounter for closed fracture (principal); E03.9 Hypothyroidism, unspecified; E86.0 Dehydration; W18.30XA Fall on same level, unspecified, initial encounter; K59.03 Drug induced constipation; T40.2X5A Adverse effect of other opioids, initial encounter; Y92.009 Unspecified place in unspecified non-institutional (private) residence as the place of occurrence of the external cause; Z87.891 Personal history of nicotine dependence